=== PATIENT | male | born 1985 | race Caucasian/White ===

== ENCOUNTER 2019-09-20 00:07 | Emergency (ER) | payer SELFPAY ==
[2019-09-20] MEDS ORDERED: Lidocaine 1% 10 ML MDV INJECT ONE (00:20)
--- NOTE | 2019-09-20 00:32 | EDM.PDOC ---
ED HPI GENERAL MEDICAL PROBLEM - General Chief Complaint: Skin Complaint Stated Complaint: INFECTION ON LEG Time Seen by Provider: 09/20/19 00:09 - History of Present Illness INITIAL COMMENTS - FREE TEXT/NARRATIVE: History of present illness: [Patient presents with an abscess on his left anterior thigh he says it has been present for approximately 3 days she is been picking at it it is not getting better he says he cannot get the stuff out no fever no chills nothing makes it better or worse no allergies no other medical problems] Review of systems: As per history of present illness and below otherwise all systems reviewed and negative. Past medical history: As per history of present illness and as reviewed below otherwise noncontributory. Surgical history: As per history of present illness and as reviewed below otherwise noncontributory. Social history: No reported history of drug or alcohol abuse. Family history: As per history of present illness and as reviewed below otherwise noncontributory. Physical exam: HEENT: Atraumatic, normocephalic, pupils reactive, negative for conjunctival pallor or scleral icterus, mucous membranes moist, throat clear, neck supple, nontender, trachea midline. Lungs: Clear to auscultation, breath sounds equal bilaterally, chest nontender. Heart: S1S2, regular, negative for clicks, rubs, or JVD. Abdomen: Soft, nondistended, nontender. Negative for masses or hepatosplenomegaly. Negative for costovertebral tenderness. Pelvis: Stable nontender. Genitourinary: Deferred. Rectal: Deferred. Extremities: Atraumatic, negative for cords or calf pain. Neurovascular unremarkable. There is an abscess on the left anterior thigh with mild surrounding cellulitis. It is partially open and draining Neuro: Awake, alert, oriented. Cranial nerves II through XII unremarkable. Cerebellum unremarkable. Motor and sensory unremarkable throughout. Exam nonfocal. Diagnostics: [] Therapeutics: I&D [] Impression: Abscess [] Plan: I&D discharge home [] Definitive disposition and diagnosis as appropriate pending reevaluation and review of above. Left Upper Leg Pain Score (Numeric/FACES): 10 - Related Data Allergies Allergy/AdvReac Type Severity Reaction Status Date / Time No Known Allergies Allergy Verified 09/20/19 00:21 Home Meds: Home Meds . [No Known Home Meds] 04/21/14 [History] Past Medical History - Past Health History Medical/Surgical History: Denies Medical/Surgical History ED ROS GENERAL - Review of Systems Review Of Systems: See Below ED EXAM, SKIN/RASH Exam: See Below Course - Vital Signs Text/Narrative:: Procedure: I&D abscess left anterior thigh a 15 blade was used to open the abscess it was probed with a Sharron clamp moderate amount of pus and blood was extracted and was irrigated with saline and left unpacked. Dressed by nursing patient will be placed on doxycycline. 10 mils of 1% lidocaine was used for anesthesia. Last Recorded V/S: Last Vital Signs Temp 36.3 C 09/20/19 00:19 Pulse 94 09/20/19 00:19 Resp 16 09/20/19 00:19 BP 127/74 09/20/19 00:19 Pulse Ox 97 09/20/19 00:19 - Orders/Labs/Meds Meds: Medications Discontinued Medications Generic Name Dose Route Start Last Admin Trade Name Rogelio PRN Reason Stop Dose Admin Lidocaine HCl 10 ml 09/20/19 00:20 09/20/19 00:34 Xylocaine 1% INJECT 09/20/19 00:21 Not Given ONETIME ONE Lidocaine HCl Confirm 09/20/19 00:24 09/20/19 00:34 Xylocaine-Mpf 1% Administered 09/20/19 00:25 Not Given Dose 10 ml .ROUTE .STK-MED ONE Lidocaine HCl 10 ml 09/20/19 00:35 09/20/19 00:48 Xylocaine-Mpf 1% INJECT 09/20/19 00:36 10 ml ONETIME ONE Administration Departure - Departure Time of Disposition: 00:36 Disposition: Home, Self-Care 01 Clinical Impression: Abscess - Discharge Information *PRESCRIPTION DRUG MONITORING PROGRAM REVIEWED*: Not Applicable *COPY OF PRESCRIPTION DRUG MONITORING REPORT IN PATIENT THANIA: Not Applicable Instructions: Skin Abscess Referrals: PCP,None [Primary Care Provider] - Forms: ED Department Discharge Additional Instructions: The following information is given to patients seen in the emergency department who are being discharged to home. This information is to outline your options for follow-up care. We provide all patients seen in our emergency department with a follow-up referral. The need for follow-up, as well as the timing and circumstances, are variable depending upon the specifics of your emergency department visit. If you don't have a primary care physician on staff, we will provide you with a referral. We always advise you to contact your personal physician following an emergency department visit to inform them of the circumstance of the visit and for follow-up with them and/or the need for any referrals to a consulting specialist. The emergency department will also refer you to a specialist when appropriate. This referral assures that you have the opportunity for follow-up care with a specialist. All of these measure are taken in an effort to provide you with optimal care, which includes your follow-up. Under all circumstances we always encourage you to contact your private physician who remains a resource for coordinating your care. When calling for follow-up care, please make the office aware that this follow-up is from your recent emergency room visit. If for any reason you are refused follow-up, please contact the [facility] Emergency Department at and asked to speak to the emergency department charge nurse. [facility] - Primary [facility] [address] [place] [address] [address] Sepsis Event Note - Focused Exam Date Exam was Performed: 09/20/19 Time Exam was Performed: 19:34
== END 2019-09-20 00:53 | disposition home or self-care (01) ==
LOC: MW.ED 00:07
DX: L02.416 Cutaneous abscess of left lower limb (principal)
CPT/HCPCS: 10060; 99282; J2001

== ENCOUNTER 2020-05-21 14:27 | Emergency (ER) | payer SELFPAY ==
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
== END 2020-05-21 17:05 | disposition home or self-care (01) ==
LOC: MW.ED 14:27
DX: M25.552 Pain in left hip (principal)
CPT/HCPCS: 72100; 72100-26; 73060-26-LT; 73060-LT; 73502-26-LT; 73502-LT; 99283; 99284-25